=== PATIENT | male | born 1995 | race Caucasian/White ===

== ENCOUNTER 2017-09-15 06:40 | Emergency (ER) ==
[2017-09-15 06:44] VITALS: TEMP 98.5; BMI 39.9
[2017-09-15 06:45] VITALS: BP 144/94
--- NOTE | 2017-09-15 07:21 | ED.PDOC ---
General ED Provider: Dr. FREDDIE GANN Chief Complaint: Non-specific Complaint Stated Complaint: sore throat Time Seen by Physician: 07:00 Information Source: Patient Exam Limitations: No limitations Nursing and Triage Documentation Reviewed and Agree: Yes Reviewed sepsis parameters & appropriate labs ordered?: Yes System Inflammatory Response Syndrome: Not Applicable Sepsis Protocol: For patient's 13 years and over: Temp is 96.8 and below OR 101 and greater Pulse >90 BPM Resp >20/minute Acutely Altered Mental Status Are patient's symptoms suggestive of a new infection, such as: -Pneumonia -Skin, Soft Tissue -Endocarditis -UTI -Bone, Joint Infection -Implantable Device -Acute Abdominal Infection -Wound Infection -Meningitis -Blood Stream Catheter Infection -Unknown System Inflammatory Response Syndrome: Not Applicable EENT Complaint Exam - Throat Complaint/Exam Onset/Duration: sore throat x 4 days Symptoms Are: Still present Timimg: Constant Initial Severity: Moderate Current Severity: Moderate Aggravating: Reports: None Alleviating: Reports: None Associated Signs and Symptoms: Reports: Chills, Cough, Nasal congestion. Denies : Fever, Dysphagia, Drooling, Foreign body sensation, Wheezing, Hoarseness, Sinus discomfort, Difficulty breathing, Lethargy, Irritability, Decreased activity, Vomiting, Diarrhea, Decreased hearing, Ear drainage Uvula Midline: Yes Sania-tonsillar Fluctuence: No Scarlatinaform Rash Present: No Stridor Present: No Sinus Tenderness Present: No Tonsillar Hypertrophy Present: Yes Tonsillar Exudate Present: No Sania-tonsillar Swelling Present: No Adenopathy Present: No Splenomegaly Present: No Differential Diagnoses: Pharyngitis Review of Systems - Review Of Systems Constitutional: Reports: No symptoms Eyes: Reports: No symptoms Ears, Nose, Mouth, Throat: Reports: Throat pain Respiratory: Reports: No symptoms Cardiac: Reports: No symptoms GI: Reports: No symptoms : Reports: No symptoms Musculoskeletal: Reports: No symptoms Skin: Reports: No symptoms Neurological: Reports: No symptoms Endocrine: Reports: No symptoms Hematologic/Lymphatic: Reports: No symptoms All Other Systems: Reviewed and Negative Past Medical History - Past Medical History Previously Healthy: Yes Endocrine: Reports: None Cardiovascular: Reports: None Respiratory: Reports: None Hematological: Reports: None Gastrointestinal: Reports: None Genitourinary: Reports: None Neuro/Psych: Reports: None Musculoskeletal: Reports: None Cancer: Reports: None - Surgical History General Surgical History: Reports: None - Family History Family History: Reports: None - Social History Smoking Status: Current every day smoker Hx Substance Use: No Alcohol Screening: Occasionally - Immunizations Tetanus Shot up to Date: Yes Physical Exam - Physical Exam Appearance: Well-appearing, No pain distress, Well-nourished Eyes: ANJUM, EOMI, Conjunctiva clear ENT: Erythema Respiratory: Airway patent, Breath sounds clear, Breath sounds equal, Respirations nonlabored Cardiovascular: RRR, Pulses normal, No rub, No murmur GI/: Soft, Nontender, No masses, Bowel sounds normal, No Organomegaly Musculoskeletal: Normal strength, ROM intact, No edema, No calf tenderness Skin: Warm, Dry, Normal color Neurological: Sensation intact, Motor intact, Reflexes intact, Cranial nerves intact, Alert, Oriented Psychiatric: Affect appropriate, Mood appropriate Critical Care Note - Critical Care Note Total Time (mins): 0 Course - Course Vital Signs: Temp Pulse Resp BP Pulse Ox 09/15/17 06:41 98.5 F 91 H 16 144/94 H 99 Departure - Departure Time of Disposition: 07:21 Disposition: HOME SELF-CARE Discharge Problem: Sore throat Instructions: Pharyngitis (ED), Strep Throat (ED) Condition: Good Pt referred to PMD for follow-up: Yes IPMP verified?: No Additional Instructions: Please call your Family Physician as soon as possible to schedule a follow-up appointment. Allergies/Adverse Reactions: Allergies No Known Allergies Allergy (Unverified 09/15/17 06:45) Home Medications: Ambulatory Orders 1 [No Reported Medications] 09/15/17 Disposition Discussed With: Patient
[2017-09-15] MEDS: DECADRON 4 MG/ML SDV IM STA (07:36)
[2017-09-15] MEDS: LIDOCAINE HCL 1% SDV SUBCUT STA (07:37)
[2017-09-15] MEDS: ROCEPHIN IM STA (07:37)
== END 2017-09-15 07:50 | disposition home or self-care (01) ==
LOC: ED 06:40
DX: J02.9 Acute pharyngitis, unspecified (principal); F17.210 Nicotine dependence, cigarettes, uncomplicated
CPT/HCPCS: 96372; 99282